=== PATIENT | male | born 1980 | race Caucasian/White ===

== ENCOUNTER 2021-06-20 20:57 | Emergency (ER) | payer OTHER, SELFPAY ==
[2021-06-20 21:01] VITALS: BP 146/81; PULSE 92; RESP 20; TEMP 36.3; O2SAT 100
--- NOTE | 2021-06-20 22:26 | PC.NURSE ---
Patient called for room, no answer and not seen in waiting room.
--- NOTE | 2021-06-20 22:42 | PC.NURSE ---
Patient called again for room, no answer and not outside or in waiting room.
== END 2021-06-21 04:22 | disposition left against medical advice (07) ==
LOC: ANHED 22:57
PROVIDERS: PCP Family Medicine
DX: S61.511A Laceration without foreign body of right wrist, initial encounter (principal)
CPT/HCPCS: 99199